=== PATIENT | female | born 1960 | race Caucasian/White ===

== ENCOUNTER 2018-10-24 19:47 | Emergency (ER) | payer BC ==
[~2018-10-24] VITALS: Ht 165.1 cm; Wt 53.5 kg
[2018-10-24 20:04] LABS: URINE BILIRUBIN NEGATIVE (Negative); URINE BLOOD NEGATIVE (Negative); URINE CLARITY CLEAR; URINE COLOR YELLOW; URINE GLUCOSE-RANDOM* NEGATIVE (Negative); URINE KETONES NEGATIVE (Negative); URINE LEUKOCYTES-REFLEX NEGATIVE (Negative); URINE NITRITE-REFLEX NEGATIVE (Negative); URINE PROTEIN (DIPSTICK) NEGATIVE (Negative); URINE SPECIFIC GRAVITY 1.015 (1.005-1.035); URINE UROBILINOGEN 0.2 E.U./dl (0.2-1.0)
[2018-10-24] MEDS ORDERED: PRILOSEC 20 MG20 MG PO (20:31)
[2018-10-24] MEDS ORDERED: XANAX 0.5 MG0.5 MG PO (20:31)
[2018-10-24 20:48] LABS: ABSOLUTE NEUTROPHILS 5.4 thou/uL (1.4-8.2); BASOPHILS 0.7 % (0.0-2.0); EOSINOPHILS 2.4 % (0.0-3.0); HEMATOCRIT 43.4 % (37.0-47.0); HEMOGLOBIN 14.9 gm/dL (12.0-15.0); LYMPHOCYTES 27.8 % (24.0-44.0); MCH 29.9 pg (26.0-34.0); MCHC 34.3 g/dL (28.0-37.0); PLATELET COUNT 264 thou/uL (150-400); POLYS 61.1 % (36.0-66.0); RBC 4.99 mil/uL (4.20-5.00); RDW 13.1 % (10.5-14.5); WBC 8.8 thou/uL (4.0-11.0)
[2018-10-24 20:50] LABS: CALCIUM 9.3 mg/dL (8.5-10.1); CREATININE 0.9 mg/dL (0.6-1.0); POTASSIUM 3.8 mmol/L (3.5-5.1)
[2018-10-24 20:56] LABS: ALBUMIN 4.3 g/dL (3.4-5.0); TOTAL BILIRUBIN 0.3 mg/dL (<0.1-1.0)
[2018-10-24] MEDS ORDERED: IBUPROFEN 600600 M1 PO (21:52)
[2018-10-24] MEDS ORDERED: ULTRAM 50MG TAB50 MG PO (21:52)
[2018-10-24 22:08] VITALS: BP 171/96
== END 2018-10-24 22:10 | disposition home or self-care (01) ==
LOC: ER 19:47
PROVIDERS: Emergency Medicine
DX: R10.31 Right lower quadrant pain (principal); R10.12 Left upper quadrant pain; F17.210 Nicotine dependence, cigarettes, uncomplicated; J45.909 Unspecified asthma, uncomplicated; Z98.890 Other specified postprocedural states